=== PATIENT | male | born 1930 | race Caucasian/White ===

== ENCOUNTER 2016-11-06 18:20 | Emergency (ER) | payer OTHER ==
[2016-11-06 19:08] VITALS: TEMP 98.3; BMI 19.2
--- NOTE | 2016-11-06 19:24 | PDOC ---
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 Pt got up from wheelchair and fell and hit the right-side of his head. As per [facility], pt did not lose consciousness. Upon examination, pt denies having any pain or any other symptoms. <Margarita Cooper - Last Filed: 11/06/16 20:41> <Ellie Staton - Last Filed: 11/07/16 00:16> - General Chief Complaint: Injury Stated Complaint: FALL Time Seen by Provider: 11/06/16 19:23 Past History <Margarita Cooper - Last Filed: 11/06/16 20:41> - Past Medical History Cardiac Disorders: Yes CVA: Yes COPD: Yes CHF: Yes GI Disorders: Yes (GERD) HTN: Yes - Surgical History Cardiac Surgery: Yes ([facility]PASS) - Immunization History Immunization Up to Date: Yes - Psycho/Social/Smoking Cessation Hx Anxiety: No Suicidal Ideation: No Smoking Status: No Smoking History: Never smoked Have you smoked in the past 12 months: No Number of Cigarettes Smoked Daily: 0 Hx Alcohol Use: No Drug/Substance Use Hx: No Substance Use Type: None Hx Substance Use Treatment: No <Ellie Staton - Last Filed: 11/07/16 00:16> - Past Medical History Allergies/Adverse Reactions: Allergies Allergy/AdvReac Type Severity Reaction Status Date / Time No Known Allergies Allergy Verified 11/06/16 18:47 Home Medications: Ambulatory Orders Fluticasone Propionate [Flovent Hfa] 0 gm IH DAILY 04/04/14 Furosemide [Lasix -] 0 mg PO DAILY 04/04/14 Losartan Potassium 0 mg PO DAILY 04/04/14 Albuterol 0.083% Nebulizer Chandni [Ventolin 0.083% Nebulizer Soln -] 1 neb NEB Q4H PRN #20 vial 04/05/14 Arformoterol Tartrate [Brovana -] 1 neb NEB BID #7 vial 10/30/14 Ascorbic Acid [Vitamin C -] 500 mg PO DAILY #30 tablet 04/05/14 Aspirin [ASA -] 81 mg PO DAILY #30 tab.chew 04/05/14 Dutasteride [Avodart] 0.5 mg PO DAILY #30 cap 04/05/14 Latanoprost 0.005% Eye Drops [Xalatan 0.005% Eye Drops -] 1 drop OU HS #30 drops 04/05/14 Pantoprazole Sodium [Protonix -] 40 mg PO DAILY #30 tablet.ec 04/05/14 Prednisone [Deltasone -] 10 mg PO DAILY #30 tablet 04/05/14 Quetiapine Fumarate [Seroquel -] 12.5 mg PO DAILY #30 tablet 04/05/14 Tolterodine Tartrate LA [Detrol LA -] 4 mg PO DAILY #30 cap.sr.24h 04/05/14 Acetaminophen 650 mg PO QID PRN 11/06/16 Amlodipine Besylate [Norvasc -] 10 mg PO DAILY 11/06/16 Atorvastatin Ca [Lipitor] 20 mg PO HS 11/06/16 Cefepime HCl/Dextrose, Iso-Osm [Cefepime 1 gm Injection] 1 gm IV BID 11/06/16 Multivitamins [Tab-A-Vit -] 1 tab PO DAILY 11/06/16 Tamsulosin HCl [Flomax] 0.4 mg PO DAILY 11/06/16 Review of Systems - Review of Systems Able to Perform ROS?: Yes Comments:: 11/06/16 20:14 GENERAL/CONSTITUTIONAL: No fever or chills. No weakness. HEAD, EYES, EARS, NOSE AND THROAT: No change in vision. No ear pain or discharge. No sore throat. CARDIOVASCULAR: No chest pain or shortness of breath. RESPIRATORY: No cough, wheezing, or hemoptysis. GASTROINTESTINAL: No nausea, vomiting, diarrhea or constipation. GENITOURINARY: No dysuria, frequency, or change in urination. MUSCULOSKELETAL: No joint or muscle swelling or pain. No neck or back pain. SKIN: No rash NEUROLOGIC: No headache, vertigo, loss of consciousness, or change in strength/ sensation. ENDOCRINE: No increased thirst. No abnormal weight change. HEMATOLOGIC/LYMPHATIC: No anemia, easy bleeding, or history of blood clots. ALLERGIC/IMMUNOLOGIC: No hives or skin allergy. <Margarita Cooper - Last Filed: 11/06/16 20:41> *Physical Exam - Vital Signs Last Vital Signs Temp Pulse Resp BP Pulse Ox 98.3 F 82 20 177/79 99 11/06/16 19:04 11/06/16 19:04 11/06/16 19:04 11/06/16 19:04 11/06/16 19:04 - Physical Exam Comments: 11/06/16 20:15 GENERAL: Awake, alert, and fully oriented, in no acute distress HEAD: +2.5 cm by 1.5 cm oval hematoma on right-side of head. ENT: Auricles normal inspection, hearing grossly normal, nares patent, oropharynx clear. Right ear is full of wax. EYES: PERRLA, EOMI, sclera anicteric, conjunctiva clear without exudates. Moist mucosa. NECK: Normal ROM, supple, no lymphadenopathy, JVD, or masses LUNGS: Breath sounds equal, clear to auscultation bilaterally. No wheezes, and no crackles HEART: Regular rate and rhythm, normal S1 and S2, no murmurs, rubs or gallops ABDOMEN: Soft, nontender, normoactive bowel sounds. No guarding, no rebound. No masses EXTREMITIES: Normal range of motion, no edema. No clubbing or cyanosis. No cords, erythema, or tenderness NEUROLOGICAL: Cranial nerves II through XII grossly intact. Alert and oriented x3 SKIN: Warm, Dry, normal turgor, no rashes or lesions noted <Margarita Cooper - Last Filed: 11/06/16 20:41> - Vital Signs Last Vital Signs Temp Pulse Resp BP Pulse Ox 98.3 F 82 20 177/79 99 11/06/16 19:04 11/06/16 19:04 11/06/16 19:04 11/06/16 19:04 11/06/16 19:04 <Ellie Staton - Last Filed: 11/07/16 00:16> Medical Decision Making - Medical Decision Making 11/07/16 00:15 [place] he was seated in the dining fields. Pt has a small abrasion to the right side of his head. Exam is normal. Pt is in no distress and has no complaint of pain. No LOC. Head CT no injuries. [place]. <Ellie Staton - Last Filed: 11/07/16 00:16> *DC/Admit/Observation/Transfer - Attestations Scribe Attestion: 11/06/16 20:15 Documentation prepared by Margarita Cooper, acting as medical records receptionist for Ellie Staton MD. <Margarita Cooper - Last Filed: 11/06/16 20:41> <Ellie Staton - Last Filed: 11/07/16 00:16> Diagnosis at time of Disposition: Fall from wheelchair, Maxillary sinusitis - Discharge Dispostion Disposition: TRANSFER ACUTE CARE/OTHER HOSP Condition at time of disposition: Stable - Patient Instructions Printed Discharge Instructions: DI for Closed Head Injury
[2016-11-06 21:39] VITALS: BP 172/86; PULSE 90
== END 2016-11-06 23:09 | disposition short-term general hospital (02) ==
LOC: JER 18:20
DX: J32.0 Chronic maxillary sinusitis (principal); W05.0XXA Fall from non-moving wheelchair, initial encounter; Y93.9 Activity, unspecified; Y92.129 Unspecified place in nursing home as the place of occurrence of the external cause; J44.9 Chronic obstructive pulmonary disease, unspecified; I10 Essential (primary) hypertension; Z86.73 Personal history of transient ischemic attack (TIA), and cerebral infarction without residual deficits; I50.9 Heart failure, unspecified; K21.9 Gastro-esophageal reflux disease without esophagitis
CPT/HCPCS: 70450-TC; 99281-25